=== PATIENT | female | born 1990 | race Two or more races ===

== ENCOUNTER 2016-10-16 00:35 | Emergency (ER) | payer SELFPAY ==
[~2016-10-16] VITALS: Ht 157.5 cm; Wt 68.0 kg
[2016-10-16 00:45] VITALS: BP 118/69
[2016-10-16 01:17] LABS: Basophils # (auto) 0 uL; Basophils % (auto) 0.3 % (0.0-2.0); Eosinophils # (auto) 0.2 uL; Eosinophils % (auto) 2.7 % (0.0-7.0); Hematocrit 38.8 % (36.0-46.0); Hemoglobin 12.9 g/dL (12.2-16.2); Lymphocytes # (auto) 2.3 uL; Lymphocytes % (auto) 27.7 % (10.0-50.0); Mean Corpuscular Hemoglobin 28.9 pg (28.0-32.0); Mean Corpuscular Hgb Conc. 33.2 g/dL (32.0-36.0); Mean Platelet Volume 8.5 fL (7.4-10.4); Monocytes # (auto) 0.4 uL; Neutrophils # (auto) 5.4 uL; Neutrophils % (auto) 64.3 % (37.0-80.0); Platelet Count (auto) 257 10^3/uL (140-450); White Blood Cell 8.5 10^3/uL (4.4-10.8)
[2016-10-16 01:37] LABS: Albumin 3.8 g/dL (3.4-5.0); BUN/Creatinine Ratio 20.3; Calcium 8.4 mg/dL (8.5-10.1); Potassium 3.9 mmol/L (3.5-5.1)
[2016-10-16 01:40] LABS: Bilirubin, Total 0.2 mg/dL (0.2-1.0); Total Protein 7.5 g/dL (6.4-8.2)
== END 2016-10-16 04:14 | disposition left against medical advice (07) ==
LOC: ER 00:39
DX: R25.2 Cramp and spasm (principal); R11.10 Vomiting, unspecified
CPT/HCPCS: 36415; 80053; 85025; 85049

== ENCOUNTER → 2017-09-03 | Outpatient (CLI) | payer OTHER | END | disposition home or self-care (01) | LOC: LAB 16:11 | PROVIDERS: ATTEND Preventive Medicine Preventive Medicine/Occupational Environmental Medicine | DX: Z02.1 Encounter for pre-employment examination (principal) | CPT/HCPCS: 36415; 86706; 86735; 86762; 86765; 86787 ==

== ENCOUNTER → 2022-01-25 | Outpatient (CLI) | payer BC ==
[2022-01-25 11:02] LABS: Basophils # (auto) 0 10 ^3/uL (0-0.2); Basophils % (auto) 0.4 % (0.0-2.0); Eosinophils # (auto) 0.1 10 ^3/uL (0-0.8); Eosinophils % (auto) 1.5 % (0.0-7.0); Hematocrit 39.2 % (36.0-46.0); Hemoglobin 13.3 g/dL (12.2-16.2); Lymphocytes # (auto) 1.9 10 ^3/uL (0.4-5.4); Lymphocytes % (auto) 36.6 % (10.0-50.0); Mean Corpuscular Hemoglobin 29.1 pg (28.0-32.0); Mean Corpuscular Hgb Conc. 33.8 g/dL (32.0-36.0); Monocytes # (auto) 0.4 10 ^3/uL (0-1.3); Monocytes % (auto) 7.7 % (0.0-12.0); Neutrophils # (auto) 2.8 10 ^3/uL (1.6-8.6); Neutrophils % (auto) 53.8 % (37.0-80.0); Nucleated Red Blood Cells % 0.1 %; Red Blood Cells 4.56 10^6/uL (4.0-5.20); Red Cell Distribution Width 12.6 % (11.8-14.3); White Blood Cell 5.1 10^3/uL (4.4-10.8)
[2022-01-25 11:04] LABS: Potassium 4.5 mmol/L (3.5-5.1)
[2022-01-25 11:12] LABS: Albumin 4.2 g/dL (3.4-5.0); Bilirubin, Total 0.5 mg/dL (0.2-1.0); Calcium 10.1 mg/dL (8.5-10.1); Total Protein 8.1 g/dL (6.4-8.2)
== END | disposition home or self-care (01) ==
LOC: LAB 10:10
PROVIDERS: ATTEND Internal Medicine
DX: E78.5 Hyperlipidemia, unspecified (principal)
CPT/HCPCS: 36415; 80053; 83036; 85025

== ENCOUNTER → 2022-05-22 | Outpatient (CLI) | payer BC ==
[2022-05-22 15:12] LABS: Basophils # (auto) 0 10 ^3/uL (0-0.2); Basophils % (auto) 0.7 % (0.0-2.0); Eosinophils # (auto) 0.2 10 ^3/uL (0-0.8); Eosinophils % (auto) 2.7 % (0.0-7.0); Hematocrit 40.5 % (36.0-46.0); Hemoglobin 13.3 g/dL (12.2-16.2); Lymphocytes # (auto) 1.8 10 ^3/uL (0.4-5.4); Lymphocytes % (auto) 28.8 % (10.0-50.0); Mean Corpuscular Hemoglobin 28.2 pg (28.0-32.0); Mean Corpuscular Hgb Conc. 32.8 g/dL (32.0-36.0); Monocytes # (auto) 0.3 10 ^3/uL (0-1.3); Monocytes % (auto) 4.8 % (0.0-12.0); Neutrophils # (auto) 3.9 10 ^3/uL (1.6-8.6); Nucleated Red Blood Cells % 0.1 %; Red Blood Cells 4.71 10^6/uL (4.0-5.20); Red Cell Distribution Width 12.8 % (11.8-14.3); White Blood Cell 6.2 10^3/uL (4.4-10.8)
[2022-05-22 15:38] LABS: Albumin 4.5 g/dL (3.4-5.0); Anion Gap 9 (5-15); Blood Alcohol < 3.0 mg/dL (0-5); Blood Urea Nitrogen 13 mg/dL (7-18); Calcium 9.6 mg/dL (8.5-10.1); Carbon Dioxide 25 mmol/L (21-32); Chloride 105 mmol/L (98-107); Glucose 90 mg/dL (74-106); Potassium 3.8 mmol/L (3.5-5.1); Sodium 139 mmol/L (136-145)
[2022-05-22 15:43] LABS: Alanine Aminotransferase 18 U/L (13-56); Alkaline Phosphatase 82 U/L (45-117); Aspartate Aminotransferase 13 U/L (15-37); BUN/Creatinine Ratio 21.3; Bilirubin, Total 0.3 mg/dL (0.2-1.0); Cholesterol 231 mg/dL (< 200); GFR African American 149 mL/min; GFR Non-African American 123 mL/min; HDL Cholesterol 44 mg/dL (40-59); LDL Cholesterol 174 mg/dL (< 100); Triglycerides 124 mg/dL (< 150)
== END | disposition home or self-care (01) ==
LOC: LAB 14:35
PROVIDERS: ATTEND Specialist
DX: Z20.822 Contact with and (suspected) exposure to COVID-19 (principal); Z02.1 Encounter for pre-employment examination; Z11.1 Encounter for screening for respiratory tuberculosis; E78.5 Hyperlipidemia, unspecified; E55.9 Vitamin D deficiency, unspecified; R53.83 Other fatigue
CPT/HCPCS: 36415; 80053; 80061; 80320; 82306; 84443; 85025; 86706; 86735; 86787

== ENCOUNTER → 2022-07-18 | Outpatient (CLI) | payer BC ==
[2022-07-18 08:52] LABS: Urine WBC None Seen /hpf (0 - 5)
[2022-07-18 11:38] LABS: Urine Amorphous Crystal FEW /hpf (None Seen); Urine Bacteria NONE SEEN /hpf (None Seen); Urine Blood Negative /uL (Negative); Urine Mucus FEW (None Seen)
== END | disposition home or self-care (01) ==
LOC: LAB 08:47
PROVIDERS: ATTEND Nurse Practitioner
DX: N39.0 Urinary tract infection, site not specified (principal)
CPT/HCPCS: 81001

== ENCOUNTER → 2024-01-06 | Outpatient (CLI) | payer BC ==
[~2024-01-06] MED LIST: ATOR10TA PO; DOCU-265 PO; HYDR-4902 PO; IBUP-1456 PO; SERT25TA84 PO
== END | disposition home or self-care (01) ==
LOC: LAB 09:21
PROVIDERS: ATTEND Obstetrics & Gynecology
DX: Z34.00 Encounter for supervision of normal first pregnancy, unspecified trimester (principal); Z3A.00 Weeks of gestation of pregnancy not specified
CPT/HCPCS: 36415; 84702; 86703

== ENCOUNTER 2024-03-10 00:07 | Emergency (ER) | payer BC ==
[~2024-03-10] VITALS: Ht 157.5 cm; Wt 76.6 kg
[2024-03-10 00:28] LABS: Basophils # (auto) 0 10 ^3/uL (0-0.2); Basophils % (auto) 0.3 % (0.0-2.0); Eosinophils # (auto) 0.1 10 ^3/uL (0-0.8); Eosinophils % (auto) 0.6 % (0.0-7.0); Hematocrit 34.3 % (36.0-46.0); Hemoglobin 11.8 g/dL (12.2-16.2); Lymphocytes # (auto) 1.6 10 ^3/uL (0.4-5.4); Lymphocytes % (auto) 14.1 % (10.0-50.0); Mean Corpuscular Hemoglobin 29.7 pg (28.0-32.0); Mean Corpuscular Hgb Conc. 34.4 g/dL (32.0-36.0); Mean Corpuscular Volume 86.3 fL (80.0-100.0); Monocytes # (auto) 0.4 10 ^3/uL (0-1.3); Monocytes % (auto) 3.4 % (0.0-12.0); Neutrophils # (auto) 9.1 10 ^3/uL (1.6-8.6); Neutrophils % (auto) 81.6 % (37.0-80.0); Red Blood Cells 3.98 10^6/uL (4.0-5.20); Red Cell Distribution Width 13.4 % (11.8-14.3); White Blood Cell 11.1 10^3/uL (4.4-10.8)
[2024-03-10 00:42] LABS: Alanine Aminotransferase 10 U/L (7-40); Albumin 4.3 g/dL (3.2-4.8); Alkaline Phosphatase 60 U/L (46-116); Anion Gap 7 (5-15); Aspartate Aminotransferase 9 U/L (13-40); Calcium 9.8 mg/dL (8.7-10.4); Carbon Dioxide 20 mmol/L (20-30); Chloride 109 mmol/L (98-107); Glucose 107 mg/dL (74-106); Potassium 3.7 mmol/L (3.5-5.1); Sodium 136 mmol/L (136-145)
[2024-03-10 00:43] LABS: Bilirubin, Total 0.3 mg/dL (0.2-1.0); Total Protein 7.1 g/dL (5.7-8.2)
[2024-03-10 00:49] LABS: BUN/Creatinine Ratio 11.9 (10.0-20.0); Blood Urea Nitrogen < 5 mg/dL (9-23)
[2024-03-10] MEDS: METOCLOPRAMIDE HCL 5MG/ml INJ 2ml VIAL IV ONE (01:27)
[2024-03-10 01:33] LABS: Urine Bacteria MANY /hpf (None Seen); Urine Blood Negative /uL (Negative); Urine Clarity Turbid (Clear); Urine Color Yellow (Yellow); Urine Mucus FEW (None Seen); Urine Protein, UAD TRACE (Negative); Urine Specific Gravity 1.029 (1.001-1.035); Urine Urobilinogen Normal (Negative); Urine WBC 3 /hpf (0 - 5)
[2024-03-10 04:54] VITALS: BP 112/67; PULSE 98; RESP 20; TEMP 98.4; O2SAT 98
[2024-03-10] MEDS: cefTRIAXone 1GM/50ML D5W 50 ML IV ONE (04:54)
[2024-03-10] MEDS ORDERED: METO-281 PO (05:43)
[2024-03-10] MEDS ORDERED: NITR-87 PO (05:43)
== END 2024-03-10 05:52 | disposition home or self-care (01) ==
LOC: ER 00:07
DX: O21.8 Other vomiting complicating pregnancy (principal); R10.2 Pelvic and perineal pain; O26.891 Other specified pregnancy related conditions, first trimester; R19.7 Diarrhea, unspecified; R82.71 Bacteriuria; Z3A.15 15 weeks gestation of pregnancy; Z79.899 Other long term (current) drug therapy; Z79.1 Long term (current) use of non-steroidal anti-inflammatories (NSAID)
CPT/HCPCS: 36415; 76805; 80053; 81001; 84702; 85025; 96365; 96375; 99285; J0696; J2765

== ENCOUNTER 2024-07-16 11:00 | Observation (INO) | payer BC ==
[~2024-07-16 11:00] MED LIST changes: +METO-281 PO; +NITR-87 PO
[2024-07-16] MEDS ORDERED: PREN-96 PO (11:39)
== END 2024-07-16 11:50 | disposition home or self-care (01) ==
LOC: LDRP 11:00 → UNDOADMOB 11:00 → LDRP 11:11 → UNDODISOB 11:50
PROVIDERS: ADMIT Obstetrics & Gynecology; ATTEND Obstetrics & Gynecology
DX: O24.419 Gestational diabetes mellitus in pregnancy, unspecified control (principal); O21.0 Mild hyperemesis gravidarum; Z3A.33 33 weeks gestation of pregnancy
CPT/HCPCS: 59025; 76818; 81002; 82948; 82962; 94760; 96360; 96361; G0378

== ENCOUNTER 2024-07-20 16:00 | Observation (INO) | payer BC ==
[~2024-07-20 16:00] MED LIST changes: +PREN-96 PO
== END 2024-07-20 17:52 | disposition home or self-care (01) ==
LOC: LDRP 16:00 → UNDOADMOB 16:00 → LDRP 16:15 → UNDODISOB 17:52
PROVIDERS: ADMIT Obstetrics & Gynecology; ATTEND Obstetrics & Gynecology
DX: O24.410 Gestational diabetes mellitus in pregnancy, diet controlled (principal); Z3A.33 33 weeks gestation of pregnancy; Z79.899 Other long term (current) drug therapy; Z98.890 Other specified postprocedural states
CPT/HCPCS: 59025; 76818; 81002; 82948; 94760; G0378

== ENCOUNTER 2024-07-23 09:27 | Observation (INO) | payer BC ==
[~2024-07-23] VITALS: Ht 162.6 cm; Wt 72.6 kg
[2024-07-23] MEDS ORDERED: LACTATED RINGER'S 1,000 ML IV ONE (11:00)
== END 2024-07-23 13:40 | disposition home or self-care (01) ==
LOC: LDRP 09:27 → UNDOADMOB 09:27 → LDRP 09:36 → UNDODISOB 13:40
PROVIDERS: ADMIT Obstetrics & Gynecology; ATTEND Obstetrics & Gynecology
DX: O24.419 Gestational diabetes mellitus in pregnancy, unspecified control (principal); Z3A.34 34 weeks gestation of pregnancy
CPT/HCPCS: 59025; 76818; 81002; 82948; 82962; 96360; 96361; G0378

== ENCOUNTER 2024-07-26 08:51 | Observation (INO) | payer BC, OTHER | END 2024-07-26 10:44 | disposition home or self-care (01) | LOC: LDRP 08:51 | PROVIDERS: ADMIT Obstetrics & Gynecology; ATTEND Obstetrics & Gynecology | DX: O24.419 Gestational diabetes mellitus in pregnancy, unspecified control (principal); Z3A.34 34 weeks gestation of pregnancy; Z79.899 Other long term (current) drug therapy | CPT/HCPCS: 59025; 76818; 81002; 82948; 82962; 94760; G0378 ==

== ENCOUNTER 2024-07-30 08:55 | Observation (INO) | payer BC, OTHER ==
--- NOTE | 2024-07-30 10:20 | DVH ---
BIOPHYSICAL PROFILE HISTORY: GDMA1 TECHNIQUE: Multiple transabdominal real-time grayscale sonographic images through the gravid uterus of the fetus with duplex Doppler color flow and M-mode spectral analysis FINDINGS: BIOPHYSICAL PROFILE: breathing score: 2 movement score: 2 tone score: 2 Quantitative DWIGHT score: 2 (DWIGHT: 18.9 Cm.) Total score: 8/8 The cervix not visualized Single live fetus in cephalic presentation. heart rate 165 beats per minute. Grade 3 anterior placenta without previa or abruption IMPRESSION: 1. Biophysical profile score: 8/8
--- NOTE | 2024-07-31 11:10 | DVHDS2 ---
Physician Discharge Progress N Final Diagnosis: gdm Operations or Procedures: Operations or Procedures nst,sono Condition on Discharge: Good Disposition: Home Discharge Instructions: Diet: Regular, Consistent carbohydrate Activity: No Restrictions, As Tolerated Medications: na Follow Up Care: Specialist: 2d Discharge Statement: "Patient was advised to return to the ER or call 911 if any headaches, dizziness, shortness of breath, chest pain, abdominal pain, bleeding, fevers, or worsening of medical condition. Patient was counseled about treatment plan, medications, possible side effects, patientverbalized understanding. All questions were answered to the best of my ability. This discharge took greater then 30 minutes in planning, reviewing document ation, counseling the patient, and discussing with other team members." RHODA NICHOLSON DO Jul 31, 2024 11:10
== END 2024-07-30 10:35 | disposition home or self-care (01) ==
LOC: LDRP 08:55
PROVIDERS: ADMIT Obstetrics & Gynecology; ATTEND Obstetrics & Gynecology
DX: O24.419 Gestational diabetes mellitus in pregnancy, unspecified control (principal); Z3A.35 35 weeks gestation of pregnancy
CPT/HCPCS: 59025; 76818; 81002; 82948; 82962; 94760; G0378

== ENCOUNTER 2024-08-07 06:43 | Observation (INO) | payer BC, OTHER ==
--- NOTE | 2024-08-07 10:14 | DVH ---
BIOPHYSICAL PROFILE HISTORY: GDMA1 Comparison Study: 07/30/24 TECHNIQUE: Multiple real-time grayscale sonographic images through the gravid uterus of the fetus wi th duplex Doppler color flow and M-mode spectral analysis FINDINGS: BIOPHYSICAL PROFILE: breathing score: 2 movement score: 2 tone score: 2 Quantitative DWIGHT score: 2 (DWIGHT: 19.9 Cm.) Total score: 8 The cervix is not visualied Single live fetus in cephalic presentation. heart rate 158 beats per minute. Anterior placenta without previa or abruption IMPRESSION: Biophysical profile score: 8
--- NOTE | 2024-08-07 17:52 | DVHDS2 ---
Physician Discharge Progress N Final Diagnosis: Gestational Diabetes Operations or Procedures: Operations or Procedures NST/BPP/DWIGHT Accucheck all WNL Condition on Discharge: Stable Disposition: Home Discharge Instructions: Diet: Consistent carbohydrate Activity: No Restrictions, As Tolerated Follow Up/Referral: as scheduled Medications: N/A Follow Up Care: Discharge Statement: "Patient was advised to return to the ER or call 911 if any headaches, dizziness, shortness of breath, chest pain, abdominal pain, bleeding, fevers, or worsening of medical condition. Patient was counseled about treatment plan, medications, possible side effects, patientverbalized understanding. All questions were answered to the best of my ability. This discharge took greater then 30 minutes in planning, reviewing documentation, counseling the patient, and discussing with other team members." DINA ROLDAN DO Aug 07, 2024 17:52
== END 2024-08-07 10:29 | disposition home or self-care (01) ==
LOC: LDRP 09:02 → UNDOADMOB 09:02 → LDRP 09:22 → UNDODISOB 10:29
PROVIDERS: ADMIT Obstetrics & Gynecology; ATTEND Obstetrics & Gynecology
DX: O24.419 Gestational diabetes mellitus in pregnancy, unspecified control (principal); Z3A.36 36 weeks gestation of pregnancy
CPT/HCPCS: 59025; 76818; 81002; 82948; 82962; 94760; G0378

== ENCOUNTER 2024-08-13 09:06 | Observation (INO) | payer BC, OTHER ==
[~2024-08-13] VITALS: Ht 157.5 cm; Wt 81.6 kg
--- NOTE | 2024-08-13 10:20 | DVH ---
BIOPHYSICAL PROFILE HISTORY: GDMA1 TECHNIQUE: Multiple transabdominal real-time grayscale sonographic images through the gravid uterus of the fetus with duplex Doppler color flow and M-mode spectral analysis FINDINGS: BIOPHYSICAL PROFILE: breathing score: 2 movement score: 2 tone score: 2 Quantitative DWIGHT score: 2 (DWIGHT: 19.1 Cm. MVP 6.2 cm ) Total score: 8/8 Single live fetus in cephalic presentation. heart rate 147 beats per minute. Anterior placenta without previa or abruption IMPRESSION: 1. Biophysical profile score: 8/8 HS:Y
--- NOTE | 2024-08-18 07:54 | DVHDS2 ---
Physician Discharge Progress N Final Diagnosis: gdm Operations or Procedures: Operations or Procedures nst,sono Condition on Discharge: Good Disposition: Home Discharge Instructions: Diet: Regular, Consistent carbohydrate Activity: Light activity Medications: na Follow Up Care: Specialist: 3d Discharge Statement: "Patient was advised to return to the ER or call 911 if any headaches, dizziness, shortness of breath, chest pain, abdominal pain, bleeding, fevers, or worsening of medical condition. Patient was counseled about treatment plan, medications, possible side effects, patientverbalized understanding. All questions were answered to the best of my ability. This discharge took greater then 30 minutes in planning, reviewing documentation, counseling the patient, and discussing with other team members." RHODA NICHOLSON DO Aug 18, 2024 07:54
== END 2024-08-13 10:37 | disposition home or self-care (01) ==
LOC: LDRP 09:06
PROVIDERS: ADMIT Obstetrics & Gynecology; ATTEND Obstetrics & Gynecology
DX: O24.419 Gestational diabetes mellitus in pregnancy, unspecified control (principal); Z3A.37 37 weeks gestation of pregnancy
CPT/HCPCS: 59025; 76818; 81002; 82948; 94760; G0378

== ENCOUNTER 2024-08-18 08:58 | Observation (INO) | payer BC, OTHER ==
--- NOTE | 2024-08-18 09:47 | DVH ---
Procedure: US BIOPHYSICAL PROFILE 08/18/2024 09:29 AM Indication: GDMA1 Comparison: US BIOPHYSICAL PROFILE on DOS: 08/13/24, US BIOPHYSICAL PROFILE on DOS: 08/07/24, US BIOP HYSICAL PROFILE on DOS: 07/30/24 Technique: Sonogram of gravid uterus utilizing grayscale and color techniques. FINDINGS: Single living intrauterine gestation. Presentation: Cephalic Placenta: Anterior heart rate: 154 bpm DWIGHT: 21.3 cm, DVP: 6.3 cm Maternal cervix: Not visualized Biophysical Profile: breathing score: 2 movement score: 2 tone: 2 Quantitative DWIGHT score: 2 Total score: 8/8 IMPRESSION: 1. Single living as above. 2. Biophysical profile score: 8/8.
--- NOTE | 2024-08-18 21:47 | DVHDS2 ---
Physician Discharge Progress N Final Diagnosis: testing for GDM, A1 Operations or Procedures: Operations or Procedures 34yo IUP@38+wks VSS UA wnl NST reactive (verified by 2 RNs) BPP wnl FKC/Labor precautions reviewed. Condition on Discharge: Stable Disposition: Home Discharge Instructions: Diet: Consistent carbohydrate Activity: No Restrictions, As Tolerated Medications: see med list Follow Up Care: Specialist: f/u in 1 wk Discharge Statement: "Patient was advised to return to the ER or call 911 if any headaches, dizziness, shortness of breath, chest pain, abdominal pain, bleeding, fevers, or worsening of medical condition. Patient was counseled about treatment plan, medications, possible side effects, patientverbalized understanding. All questions were answered to the best of my ability. This discharge took greater then 30 minutes in planning, reviewing do cumentation, counseling the patient, and discussing with other team members." ANDRÉS HILL CNM Aug 18, 2024 21:47
== END 2024-08-18 10:18 | disposition home or self-care (01) ==
LOC: LDRP 08:58
PROVIDERS: ADMIT Obstetrics & Gynecology; ATTEND Obstetrics & Gynecology
DX: O24.419 Gestational diabetes mellitus in pregnancy, unspecified control (principal); Z3A.38 38 weeks gestation of pregnancy
CPT/HCPCS: 59025; 76818; 81002; 82948; 82962; 94760; G0378

== ENCOUNTER 2024-08-25 08:57 | Observation (INO) | payer BC, OTHER ==
--- NOTE | 2024-08-25 09:42 | DVH ---
BIOPHYSICAL PROFILE HISTORY: GDMA1 TECHNIQUE: Multiple transabdominal real-time grayscale sonographic images through the gravid uterus of the fetus with duplex Doppler color flow and M-mode spectral analysis FINDINGS: BIOPHYSICAL PROFILE: breathing score: 2 movement score: 2 tone score: 2 Quantitative DWIGHT score: 2 (DWIGHT: 20.3 Cm.) Total score: 8 The cervix not well visualized. Single live fetus in cephalic presentation. heart rate 145 beats per minute. Grade 3 anterior placenta without previa or abruption IMPRESSION: Biophysical profile score: 8
--- NOTE | 2024-08-25 10:04 | DVHDS2 ---
Physician Discharge Progress N Final Diagnosis: testing for GDM, A1 Operations or Procedures: Operations or Procedures 34yo IUP@39.0wks, +FM and +BH, denies VB/LOF/UCs. VSS UA wnl NST reactive (verified by 2 RNs) BPP wnl FKC/Labor precautions reviewed. Condition on Discharge: Stable Disposition: Home Discharge Instructions: Diet: Consistent carbohydrate Activity: No Restrictions, As Tolerated Medications: see med list Follow Up Care: Specialist: f/u in 3 days Discharge Statement: "Patient was advised to return to the ER or call 911 if any headaches, dizziness, shortness of breath, chest pain, abdominal pain, bleeding, fevers, or worsening of medical condition. Patient was counseled about treatment plan, medications, possible side effects, patientverbalized understanding. All questions were answered to the best of my ability. This discharge took greater then 30 minutes in planning, reviewing documentation, counseling the patient, and discussing with other team members." ANDRÉS HILL CNM Aug 25, 2024 10:04
== END 2024-08-25 10:03 | disposition home or self-care (01) ==
LOC: UNDOADMOB 08:57 → LDRP 08:57 → UNDODISOB 10:03
PROVIDERS: ADMIT Nurse Practitioner Women's Health; ATTEND Obstetrics & Gynecology
DX: O24.419 Gestational diabetes mellitus in pregnancy, unspecified control (principal); O62.9 Abnormality of forces of labor, unspecified; Z79.899 Other long term (current) drug therapy; Z98.890 Other specified postprocedural states; Z3A.39 39 weeks gestation of pregnancy
CPT/HCPCS: 59025; 76818; 81002; 82948; 82962; 94760; G0378

== ENCOUNTER 2024-08-28 11:58 | Observation (INO) | payer BC, OTHER ==
--- NOTE | 2024-08-28 12:46 | DVH ---
CLINICAL HISTORY: Gestational diabetes. COMPARISON: US BIOPHYSICAL PROFILE on DOS: 08/25/24, US BIOPHYSICAL PROFILE on DOS: 08/18/24, US BIOPH YSICAL PROFILE on DOS: 08/13/24 TECHNIQUE: biophysical profile was performed. Transabdominal sonographic images of the fetus we re obtained. FINDINGS: The fetus is in cephalic position. heart rate measures 146 BPM. Amniotic fluid index measures 22.6 cm. The placenta is anterior in position. BPP profile is an overall score of 8/8, with 2/2 points for breathing, with at least one episode of breathing over a 30 second duration during a 30 minute observation, 2/2 points for m ovements, with 3 or more discrete body or limb movements, 2/2 points for tone, with one or more episodes of extremity extension with return to flexion, or opening and closing of hand, and 2/ 2 points for amniotic fluid, with at least 1 pocket of amniotic fluid that measures 2 cm in 2 perpend icular planes. IMPRESSION: BPP score of 8/8. Amniotic fluid index is 22.6.
--- NOTE | 2024-08-28 13:08 | DVHDS2 ---
Physician Discharge Progress N Final Diagnosis: gdm Operations or Procedures: Operations or Procedures nst,sono Condition on Discharge: Good Disposition: Home Discharge Instructions: Diet: Consistent carbohydrate Activity: No Restrictions, As Tolerated Medications: na Follow Up Care: Specialist: 2d Discharge Statement: "Patient was advised to return to the ER or call 911 if any headaches, dizziness, shortness of breath, chest pain, abdominal pain, bleeding, fevers, or worsening of medical condition. Patient was counseled about treatment plan, medications, possible side effects, patientverbalized understanding. All questions were answered to the best of my ability. This discharge took greater then 30 minutes in planning, reviewing documentation, counseling the patient, and discussing with other team members." RHODA NICHOLSON DO Aug 28, 2024 13:08
== END 2024-08-28 13:20 | disposition home or self-care (01) ==
LOC: LDRP 11:58
PROVIDERS: ADMIT Obstetrics & Gynecology; ATTEND Obstetrics & Gynecology
DX: O24.419 Gestational diabetes mellitus in pregnancy, unspecified control (principal); Z3A.39 39 weeks gestation of pregnancy; Z79.899 Other long term (current) drug therapy
CPT/HCPCS: 59025; 76818; 81002; 82962; G0378; 96366

== ENCOUNTER 2024-08-30 05:39 | Inpatient (IN) | payer BC, OTHER ==
[~2024-08-30] VITALS: Ht 157.5 cm; Wt 83.9 kg
[2024-08-30] MEDS ORDERED: PENICILLIN G POT 5MIL/D5 50ML 50 ML IV ONE (20:15)
[2024-08-30] MEDS ORDERED: NALBUPHINE HCL 10 MG/1ml INJECTION IV PRN (20:15)
[2024-08-30] MEDS ORDERED: NALBUPHINE HCL 10 MG/1ml INJECTION IM PRN (20:15)
[2024-08-30] MEDS ORDERED: ONDANSETRON HCL 4 MG/2 ML VIAL IV PRN (21:00)
[2024-08-30 21:17] LABS: Basophils # (auto) 0 10 ^3/uL (0-0.2); Basophils % (auto) 0.3 % (0.0-2.0); Eosinophils # (auto) 0 10 ^3/uL (0-0.8); Eosinophils % (auto) 0.3 % (0.0-7.0); Hematocrit 35.9 % (36.0-46.0); Hemoglobin 12.4 g/dL (12.2-16.2); Lymphocytes # (auto) 1.5 10 ^3/uL (0.4-5.4); Lymphocytes % (auto) 16.5 % (10.0-50.0); Mean Corpuscular Hemoglobin 30.3 pg (28.0-32.0); Mean Corpuscular Hgb Conc. 34.4 g/dL (32.0-36.0); Monocytes # (auto) 0.5 10 ^3/uL (0-1.3); Neutrophils # (auto) 7.1 10 ^3/uL (1.6-8.6); Neutrophils % (auto) 77.9 % (37.0-80.0); Platelet Count (auto) 190 10^3/uL (140-450); Red Blood Cells 4.08 10^6/uL (4.0-5.20); Red Cell Distribution Width 12.9 % (11.8-14.3); White Blood Cell 9.1 10^3/uL (4.4-10.8)
[2024-08-30] MEDS: LACTATED RINGER'S 1,000 ML IV SCH (21:20)
[2024-08-30 21:25] LABS: Alanine Aminotransferase 13 U/L (7-40); Albumin 4.4 g/dL (3.2-4.8); Anion Gap 11 (5-15); Aspartate Aminotransferase 18 U/L (13-40); BUN/Creatinine Ratio 15.8 (10.0-20.0); Blood Urea Nitrogen 9 mg/dL (9-23); Calcium 9.8 mg/dL (8.7-10.4); Carbon Dioxide 21 mmol/L (20-31); Chloride 105 mmol/L (98-107); Potassium 3.7 mmol/L (3.5-5.1); Sodium 137 mmol/L (136-145)
[2024-08-30 21:26] LABS: Bilirubin, Total 0.3 mg/dL (0.2-1.0); Total Protein 6.8 g/dL (5.7-8.2)
[2024-08-30 21:30] LABS: Alkaline Phosphatase 192 U/L (46-116); Glucose 112 mg/dL (74-106)
[2024-08-30 21:35] LABS: INR 0.95 (0.9-1.15); Partial Thromboplastin Time 24.4 SEC (24.5-34.5); Prothrombin Time 10.1 sec (9.3-11.8)
--- NOTE | 2024-08-30 22:33 | DVHHP2 ---
OB CC & HPI Date Date of Admission: Aug 30, 2024 Patient Identification: : 1 Para: 0 EDC: Aug 31, 2024 EGA: 39w 6d Chief Complaints: Reason for admission: induction of labor Indication for induction: medical complication (GDMA1) Admission Nurse Assessment Rev: Yes History of Present Complaints 34yo G1,[address] for scheduled IOL for GDMA1. She reports normal movements, very occasional contractions, no LOF, bleeding, MCKEON, vision changes or epigastric pain Past Medical History Cardiac: No pertinent Hx Pulmonary: No pertinent Hx Central Nervous System: No pertinent Hx GI: No pertinent Hx Hemotology/Oncology: No pertinent Hx Psychiatric: Anxiety Rheumotologic: No pertinent Hx Infectious Disease: No peritnent Hx ENT: No pertinent Hx Renal/: No pertinent Hx Dermatology: No pertinent Hx Others Endometriosis, Ovarian cyst Past Surgical History: Other (Right partial Oophrectomy in Jun 2023) OB History OB History Care: Good Care Ultrasounds: Normal mid trimester US Obstetrical Complications: Gestational Diabetes Medical Complications: Psychiatric (Anxiety on Zol) Allergies: Coded Allergies: NO KNOWN ALLERGIES (Unverified , 10/16/16) Home Meds Active Scripts Nitrofurantoin Monohydrate Mac (Macrobid) 100 Mg Cap, 100 MG PO BID for 7 Days, #14 CAP Prov:BRANDY JOHNSTON MD 03/10/24 Metoclopramide Hcl (Reglan) 10 Mg Tab, 10 MG PO QID PRN, #20 TAB Prov:BRANDY JOHNSTON MD 03/10/24 Ibuprofen (Ibuprofen) 800 Mg Tab, 800 MG PO TID PRN for 10 Days, #30 TAB Prov:DINA ROLDAN DO 06/29/23 Hydrocodone-Acetaminophen (Hydrocodone Bitartrate/AC 5-325 mg) 1 Tab Tab, 1 TAB PO Q6HPRN PRN for 5 Days, #20 TAB Prov:DINA ROLDAN DO 06/29/23 Docusate Sodium (Docusate Sodium) 100 Mg Cap, 100 MG PO BIDPRN PRN for 5 Days, CAP Prov:DINA ROLDAN DO 06/29/23 Reported Medications Vit W/ Ferrous Fumara ( One Daily) Daily Tab, 1 TAB PO DAILY, #90 TAB 3 Refills 07/16/24 Atorvastatin Calcium (Lipitor) 10 Mg Tab, 1 TAB PO QPM, #90 TAB 3 Refills 06/28/23 Sertraline Hcl (Zoloft) 25 Mg Tab, 75 MG PO DAILY, TAB 06/28/23 Current Medications Current Medications Medications (Trade) Dose Ordered Sig/Allison Route PRN Reason Start Time Stop Time Status Last Admin Lactated Ringer's 1,000 ml @ 125 mls/hr Q8H IV 08/30/24 20:15 08/30/24 21:20 Nalbuphine HCl (Nubain) 10 mg Q4HP PRN IM MODERATE PAIN (4-6 PAIN SCALE) 08/30/24 20:15 Nalbuphine HCl (Nubain) 10 mg Q4HP PRN IV MODERATE PAIN (4-6 PAIN SCALE) 08/30/24 20:15 Penicillin G Potassium [id number] units/Dextrose 50 ml @ 100 mls/hr Q4H IV 08/31/24 00:15 Diagnostic Test (Pha) (Accu-Chek Comfort Curve T) 1 strip Q4HR 08/30/24 23:00 Rigoberto Mathew (Tucks) 1 pad PRN PRN TOP PERINEAL AREA DISCOMFORT 08/30/24 20:15 Sodium Lauryl Sulfate (Phisoderm) 240 ml PRN PRN TOP PERINEAL AREA DISCOMFORT 08/30/24 20:15 Benzocaine (Dermoplast) 1 applic PRN PRN TOP PERINEAL AREA DISCOMFORT 08/30/24 20:15 Lidocaine HCl (Xylocaine) 20 ml ONCE PRN IJ PERINEAL AREA DISCOMFORT 08/30/24 20:15 Ondansetron HCl (Zofran) 4 mg Q4HPRN PRN IV NAUSEA / VOMITING 08/30/24 21:00 Misoprostol (Cytotec) 50 mcg Q4HPRN PRN PO CERVICAL RIPENING 08/30/24 22:00 UNV Family & Social History Family/Social History Past Family/Social History: Family history non pertinent Blood Type: B+ Rubella: immune RPR/VDRL: Negative GBS Status: Negative HBsAG: Negative Review of Systems Constitutional: No symptom reported Ears, Nose, & Throat: No symptom reported Eyes: No symptom reported Pulmonary/Respiratory: No symptom reported Cardiovascular: No symptom reported Gastrointestinal: No symptom reported Genitourinary: No symptom reported Musculoskeletal: No symptom reported Skin: No symptom reported Psychiatric: No symptom reported Endocrine: No symptom reported Hemotologic/Lymphatic: No symptom reported OB Admission Exam Physical Exam HEENT: Nasal Mucosa Normal, Eyes non-injected Heart: Rhythm Normal Lungs: Clear Abdomen: Gravid (non-tender) Extremities: Normal Reflexes: Normal Cervical Dilatation: None Effacement: 0% Station: Ballotable (Exam ny RN) Membranes: Intact Heart Rate: 140's Accelerations: Accelerations Present Decelerations: No Decelerations Intermediate Variability: Average (6-25) Contractions on Admission: 6-10 Minutes Apart Intensity: Mild (Not felt by patient) OB Plan Plan Admitting Diagnosis: IUP at 39weeks 6d GDMA1 Induction of labor Category 1 FHR Tracing Plan: Induction Induction Methd: Prostin protocol Other Plan: Plan of care discussed with Patient and partner / family IOL process, cervical ripening with medication, cervical ripening balloon, oxytocin etc including the risks, benefits and options discussed with the patient & partner. Process, Risks, benefits, of possible intervention /procedures, Internal monitoring of UCs & FHT, AROM, amnioinfusion etc if indicated Pain management options discussed; wants labor epidural All questions answered. Informed Consents obtained including consent for possible blood transfusion Admit to Place for scheduled IOL Routine L&D admission orders Misoprostol per protocol EFM per policy & protocol Intrauterine resuscitation PRN Labor analgesia PRN Encourage frequent position change and ambulation to facilitate labor & descent Supportive Care Anticipate Will consult /co-manage with Dr Avila.as needed ESTELLA STRICKLAND CNM Aug 30, 2024 22:33
[2024-08-30 22:36] LABS: Urine Amorphous Crystal FEW /hpf (None Seen); Urine Bacteria FEW /hpf (None Seen); Urine Blood Negative /uL (Negative); Urine Clarity Clear (Clear); Urine Color Yellow (Yellow); Urine Mucus FEW (None Seen); Urine Protein, UAD 1+ (Negative); Urine Specific Gravity 1.029 (1.001-1.035); Urine Urobilinogen Normal (Negative); Urine WBC 2 /hpf (0 - 5); Urine pH 6.5 (5.0-9.0)
[2024-08-30 22:40] LABS: Amphetamine Screen, Urine Neg (NEGATIVE); Barbiturate Scree,Urine Neg (NEGATIVE); Benzodiazephine Screen, Urine Neg (NEGATIVE); Cannabinoid Screen, Urine Neg (NEGATIVE); Cocaine Screen, Urine Neg (NEGATIVE); Opiate Scree,Urine Neg (NEGATIVE); Phencyclidine Screen, Urine Neg (NEGATIVE)
[2024-08-30] MEDS ORDERED: ACCU-CHEK COMFORT CURVE STRIP VI SCH (23:00)
[2024-08-30] MEDS: DERMOPLAST 60ML BOTTLE TOP PRN (23:38)
[2024-08-30] MEDS: PHISODERM TOP SOLN 240ML BTL TOP PRN (23:38)
[2024-08-30] MEDS: miSOPROStol 50 MCG per PRE-CUT 1/2 TAB PO PRN (23:38)
[2024-08-30] MEDS: WITCH HAZEL-GLYCERIN PAD TOP PRN (23:38)
[2024-08-31] MEDS ORDERED: PENICILLIN G POTASSIUM 2,500,000 UNITS in D5W 5% 50 ML IV SCH (00:15)
--- NOTE | 2024-08-31 08:21 | DVHPN2 ---
CNM Labor Progress Note Date and Time Seen Date Seen: Aug 31, 2024 Time Seen: 06:00 Subjective Patient reports: No new complaints Monitoring Method Monitoring Method: External Heart Rate Heart Rate Baseline: 135 Heart Rate Variability: Moderate Presence of FHR Accelerations: Yes Presence of FHR Decelerations: No Changes in Trends of Patterns: No Are all 5 Components of the FH: Yes Contractions Contractions Frequency: Occasional Duration of Contraction: 60 Contractions Intensity: Mild Contractions Resting Tone: Relaxed Membranes Membranes: Intact Vaginal Exam Vag Exam Deferred: Yes Medications Medications - Pitocin: No Medication - Epidural: No Medication - Other Misoprostol Lab Results Lab Results Current Medications Medications (Trade) Dose Ordered Sig/Allison Start Time Stop Time Status Last Admin Dose Admin Lactated Ringer's 1,000 ml @ 125 mls/hr Q8H 08/30/24 20:15 08/30/24 21:20 125 MLS/HR Nalbuphine HCl (Nubain) 10 mg Q4HP PRN 08/30/24 20:15 Nalbuphine HCl (Nubain) 10 mg Q4HP PRN 08/30/24 20:15 Penicillin G Potassium 50 ml @ 100 mls/hr ONCE ONCE 08/30/24 20:15 08/30/24 23:50 DC Penicillin G Potassium [id number] units/Dextrose 50 ml @ 100 mls/hr Q4H 08/31/24 00:15 08/30/24 23:50 DC Diagnostic Test (Pha) (Accu-Chek Comfort Curve T) 1 strip Q4HR 08/30/24 23:00 Rigoberto Mathew (Tucks) 1 pad PRN PRN 08/30/24 20:15 08/30/24 23:38 1 PAD Sodium Lauryl Sulfate (Phisoderm) 240 ml PRN PRN 08/30/24 20:15 08/30/24 23:38 240 ML Benzocaine (Dermoplast) 1 applic PRN PRN 08/30/24 20:15 08/30/24 23:38 1 APPLIC Lidocaine HCl (Xylocaine) 20 ml ONCE PRN 08/30/24 20:15 Ondansetron HCl (Zofran) 4 mg Q4HPRN PRN 08/30/24 21:00 Misoprostol (Cytotec) 50 mcg Q4HPRN PRN 08/30/24 22:00 12/9/24 04:02 50 MCG Laboratory Tests Test 08/31/24 03:22 08/30/24 22:15 08/30/24 20:34 Range/Units POC Glucose 98 70-106 mg/dl Urine Color Yellow Yellow Urine Clarity Clear Clear Urine pH 6.5 5.0-9.0 Urine Specific [place] 1.029 1.001-1.035 Urine Protein 1+ H Negative Urine Ketones Negative Negative Urine Blood Negative Negative /uL Urine Nitrite Negative Negative Urine Bilirubin Negative Negative Urine Urobilinogen Normal Negative mg/dL Urine Leukocyte Esterase Negative Negative /uL Urine RBC 1 0 - 4 /hpf Urine WBC 2 0 - 5 /hpf Urine Squamous Epithelial Cells Few <5 /hpf Urine Amorphous Crystals Few None Seen /hpf Urine Bacteria Few H None Seen /hpf Urine Mucus Few None Seen Urine Glucose Normal Normal mg/dL Urine Opiates Screen Neg NEGATIVE Urine Fentanyl Screen Neg NEGATIVE Urine Barbiturates Screen Neg NEGATIVE Urine Phencyclidine Screen Neg NEGATIVE Urine Amphetamines Screen Neg NEGATIVE Urine Benzodiazepines Screen Neg NEGATIVE Urine Cocaine Screen Neg NEGATIVE Urine Cannabinoids Screen Neg NEGATIVE White Blood Count 9.1 4.4-10.8 10^3/uL Red Blood Count 4.08 4.0-5.20 10^6/uL Hemoglobin 12.4 12.2-16.2 g/dL Hematocrit 35.9 L 36.0-46.0 % Mean Corpuscular Volume 88.0 80.0-100.0 fL Mean Corpuscular Hemoglobin 30.3 28.0-32.0 pg Mean Corpuscular Hemoglobin Concent 34.4 32.0-36.0 g/dL Red Cell Distribution Width 12.9 11.8-14.3 % Platelet Count 190 140-450 10^3/uL Mean Platelet Volume 8.8 6.9-10.8 fL Neutrophils (%) (Auto) 77.9 37.0-80.0 % Lymphocytes (%) (Auto) 16.5 10.0-50.0 % Monocytes (%) (Auto) 5.0 0.0-12.0 % Eosinophils (%) (Auto) 0.3 0.0-7.0 % Basophils (%) (Auto) 0.3 0.0-2.0 % Neutrophils # (Auto) 7.1 1.6-8.6 10 ^3/uL Lymphocytes # (Auto) 1.5 0.4-5.4 10 ^3/uL Monocytes # (Auto) 0.5 0-1.3 10 ^3/uL Eosinophils # (Auto) 0 0-0.8 10 ^3/uL Basophils # (Auto) 0 0-0.2 10 ^3/uL Nucleated Red Blood Cells 0.0 % Prothrombin Time 10.1 9.3-11.8 sec Prothrombin Time INR 0.95 0.9-1.15 Activated Partial Thromboplast Time 24.4 L 24.5-34.5 SEC Sodium Level 137 136-145 mmol/L Potassium Level 3.7 3.5-5.1 mmol/L Chloride Level 105 98-107 mmol/L Carbon Dioxide Level 21 20-31 mmol/L Anion Gap 11 5-15 Blood Urea Nitrogen 9 9-23 mg/dL Creatinine 0.57 0.550-1.02 mg/dL Glomerular Filtration Rate Calc 124 >90 mL/min BUN/Creatinine Ratio 15.8 10.0-20.0 Serum Glucose 112 H 74-106 mg/dL Calcium Level 9.8 8.7-10.4 mg/dL Total Bilirubin 0.3 0.2-1.0 mg/dL Aspartate Amino Transferase (AST) 18 13-40 U/L Alanine Aminotransferase (ALT) 13 7-40 U/L Alkaline Phosphatase 192 H 46-116 U/L Total Protein 6.8 5.7-8.2 g/dL Albumin 4.4 3.2-4.8 g/dL Rapid Plasma Reagin Pending Treponema pallidum Ab (TP-PA) Pending Consulting with Consulting with: None Assessment Assessment IUP at 39w 6d GDNA1 Anxiety IOL Category 1 FHR Tracing Plan Plan Continue current management Intrauterine resuscitation PRN Encourage ambulation to facilitate labor Labor analgesia PRN Supportive care Plan discussed with: Patient, Spouse ESTELLA STRICKLAND Bibi BERNAL Aug 31, 2024 08:21
[2024-08-31] MEDS: DINOPROSTONE 10MG VAG SUPP PV ONE (15:37)
--- NOTE | 2024-08-31 16:05 | DVH ---
OB ULTRASOUND <14 WEEKS: HISTORY: induction TECHNIQUE: Multiple real-time grayscale sonographic images of the pelvis with duplex Doppler color f low, spectral and M-mode analysis. TRANSDUCERS: Transabdominal FINDINGS: heart rate detected at 142 beats per minute. Presentation cephalic Placenta anterior no placenta previa or placental abruption DWIGHT: 19.67 cm IMPRESSION: 1. Presentation cephalic 2. Placenta anterior no placenta previa or placental abruption 3. Positive heart rate ( 142 beats per minute) 4. Current DWIGHT: 19.67 cm
--- NOTE | 2024-08-31 16:19 | DVHPN2 ---
OB Labor Progress Note Date and Time Seen Date Seen: Aug 31, 2024 Time Seen: 16:13 Subjective Patient reports: No new complaints Subjective Comment Cytotec x 3, mild contractions Objective Vital Signs Afeb VS stable Monitoring Method Monitoring Method: External Heart Rate Heart Rate Baseline: 130 Heart Rate Variability: Moderate Presence of FHR Accelerations: Yes Contractions Contractions Frequency: Occasional Contractions Intensity: Mild Membranes Membranes: Intact Vaginal Exam Vag Exam Deferred: No Vaginal Exam Dilation: 0 Vaginal Exam Effacement: 0 Vaginal Exam Station: -4 Vaginal Exam Presentation: VTX Vaginal Exam Show: None Medications Medications - Pitocin: No Medication - Epidural: No Lab Results Lab Results Current Medications Medications (Trade) Dose Ordered Sig/Allison Start Time Stop Time Status Last Admin Dose Admin Lactated Ringer's 1,000 ml @ 125 mls/hr Q8H 08/30/24 20:15 08/30/24 21:20 125 MLS/HR Nalbuphine HCl (Nubain) 10 mg Q4HP PRN 08/30/24 20:15 Nalbuphine HCl (Nubain) 10 mg Q4HP PRN 08/30/24 20:15 Penicillin G Potassium 50 ml @ 100 mls/hr ONCE ONCE 08/30/24 20:15 08/30/24 23:50 DC Penicillin G Potassium [id number] units/Dextrose 50 ml @ 100 mls/hr Q4H 08/31/24 00:15 08/30/24 23:50 DC Diagnostic Test (Pha) (Accu-Chek Comfort Curve T) 1 strip Q4HR 08/30/24 23:00 Rigoberto Mathew (Tucks) 1 pad PRN PRN 08/30/24 20:15 08/30/24 23:38 1 PAD Sodium Lauryl Sulfate (Phisoderm) 240 ml PRN PRN 08/30/24 20:15 08/30/24 23:38 240 ML Benzocaine (Dermoplast) 1 applic PRN PRN 08/30/24 20:15 08/30/24 23:38 1 APPLIC Lidocaine HCl (Xylocaine) 20 ml ONCE PRN 08/30/24 20:15 Ondansetron HCl (Zofran) 4 mg Q4HPRN PRN 08/30/24 21:00 Misoprostol (Cytotec) 50 mcg Q4HPRN PRN 08/30/24 22:00 08/31/24 08:35 50 MCG Dinoprostone (Cervidil Suppository) 1 supp ONCE ONCE 08/31/24 14:30 08/31/24 14:31 DC 08/31/24 15:37 1 SUPP Laboratory Tests Test 08/31/24 12:33 08/30/24 22:15 08/30/24 20:34 Range/Units POC Glucose 103 70-106 mg/dl Urine Color Yellow Yellow Urine Clarity Clear Clear Urine pH 6.5 5.0-9.0 Urine Specific [place] 1.029 1.001-1.035 Urine Protein 1+ H Negative Urine Ketones Negative Negative Urine Blood Negative Negative /uL Urine Nitrite Negative Negative Urine Bilirubin Negative Negative Urine Urobilinogen Normal Negative mg/dL Urine Leukocyte Esterase Negative Negative /uL Urine RBC 1 0 - 4 /hpf Urine WBC 2 0 - 5 /hpf Urine Squamous Epithelial Cells Few <5 /hpf Urine Amorphous Crystals Few None Seen /hpf Urine Bacteria Few H None Seen /hpf Urine Mucus Few None Seen Urine Glucose Normal Normal mg/dL Urine Opiates Screen Neg NEGATIVE Urine Fentanyl Screen Neg NEGATIVE Urine Barbiturates Screen Neg NEGATIVE Urine Phencyclidine Screen Neg NEGATIVE Urine Amphetamines Screen Neg NEGATIVE Urine Benzodiazepines Screen Neg NEGATIVE Urine Cocaine Screen Neg NEGATIVE Urine Cannabinoids Screen Neg NEGATIVE White Blood Count 9.1 4.4-10.8 10^3/uL Red Blood Count 4.08 4.0-5.20 10^6/uL Hemoglobin 12.4 12.2-16.2 g/dL Hematocrit 35.9 L 36.0-46.0 % Mean Corpuscular Volume 88.0 80.0-100.0 fL Mean Corpuscular Hemoglobin 30.3 28.0-32.0 pg Mean Corpuscular Hemoglobin Concent 34.4 32.0-36.0 g/dL Red Cell Distribution Width 12.9 11.8-14.3 % Platelet Count 190 140-450 10^3/uL Mean Platelet Volume 8.8 6.9-10.8 fL Neutrophils (%) (Auto) 77.9 37.0-80.0 % Lymphocytes (%) (Auto) 16.5 10.0-50.0 % Monocytes (%) (Auto) 5.0 0.0-12.0 % Eosinophils (%) (Auto) 0.3 0.0-7.0 % Basophils (%) (Auto) 0.3 0.0-2.0 % Neutrophils # (Auto) 7.1 1.6-8.6 10 ^3/uL Lymphocytes # (Auto) 1.5 0.4-5.4 10 ^3/uL Monocytes # (Auto) 0.5 0-1.3 10 ^3/uL Eosinophils # (Auto) 0 0-0.8 10 ^3/uL Basophils # (Auto) 0 0-0.2 10 ^3/uL Nucleated Red Blood Cells 0.0 % Prothrombin Time 10.1 9.3-11.8 sec Prothrombin Time INR 0.95 0.9-1.15 Activated Partial Thromboplast Time 24.4 L 24.5-34.5 SEC Sodium Level 137 136-145 mmol/L Potassium Level 3.7 3.5-5.1 mmol/L Chloride Level 105 98-107 mmol/L Carbon Dioxide Level 21 20-31 mmol/L Anion Gap 11 5-15 Blood Urea Nitrogen 9 9-23 mg/dL Creatinine 0.57 0.550-1.02 mg/dL Glomerular Filtration Rate Calc 124 >90 mL/min BUN/Creatinine Ratio 15.8 10.0-20.0 Serum Glucose 112 H 74-106 mg/dL Calcium Level 9.8 8.7-10.4 mg/dL Total Bilirubin 0.3 0.2-1.0 mg/dL Aspartate Amino Transferase (AST) 18 13-40 U/L Alanine Aminotransferase (ALT) 13 7-40 U/L Alkaline Phosphatase 192 H 46-116 U/L Total Protein 6.8 5.7-8.2 g/dL Albumin 4.4 3.2-4.8 g/dL Rapid Plasma Reagin Pending Treponema pallidum Ab (TP-PA) Pending Assessment Assessment Term IUP GDMA1 Induction of labor s/p Cervidil placement in posterior vaginal fornix Category 1 FHR pattern Plan Plan Continue current care Plan discussed with: Patient DINA ROLDAN DO Aug 31, 2024 16:19
[2024-08-31] MEDS: ACETAMINOPHEN 325 MG TAB PO ONE (17:54)
--- NOTE | 2024-08-31 18:27 | DVHPN2 ---
OB Labor Progress Note Date and Time Seen Date Seen: Aug 31, 2024 Time Seen: 18:40 Subjective Subjective Comment Patient has had NR NST, spont. variable and late decelerations despite position changes and O2 mask placed Patient had a prolonged 2.5 min decel down to 60 bpm, spontaneous recovery, moderate variability Cervix is unchanged closed/post thick. Monitoring Method Monitoring Method: External Heart Rate Heart Rate Baseline: 145 Heart Rate Variability: Moderate Presence of FHR Accelerations: No Presence of FHR Decelerations: Yes Heart Rate Type of Decel: Variable Decelerations, Late Decelerations Contractions Contractions Intensity: Mild Membranes Membranes: Intact Vaginal Exam Vag Exam Deferred: No Vaginal Exam Dilation: 0 Vaginal Exam Effacement: 0 Vaginal Exam Station: -4 Vaginal Exam Presentation: VTX Vaginal Exam Show: None Medications Medications - Pitocin: No Medication - Epidural: No Lab Results Lab Results Current Medications Medications (Trade) Dose Ordered Sig/Allison Start Time Stop Time Status Last Admin Dose Admin Lactated Ringer's 1,000 ml @ 125 mls/hr Q8H 08/30/24 20:15 08/30/24 21:20 125 MLS/HR Nalbuphine HCl (Nubain) 10 mg Q4HP PRN 08/30/24 20:15 08/31/24 17:47 DC Nalbuphine HCl (Nubain) 10 mg Q4HP PRN 08/30/24 20:15 Penicillin G Potassium 50 ml @ 100 mls/hr ONCE ONCE 08/30/24 20:15 08/30/24 23:50 DC Penicillin G Potassium [id number] units/Dextrose 50 ml @ 100 mls/hr Q4H 08/31/24 00:15 08/30/24 23:50 DC Diagnostic Test (Pha) (Accu-Chek Comfort Curve T) 1 strip Q4HR 08/30/24 23:00 Rigoberto Mathew (Tucks) 1 pad PRN PRN 08/30/24 20:15 08/30/24 23:38 1 PAD Sodium Lauryl Sulfate (Phisoderm) 240 ml PRN PRN 08/30/24 20:15 08/30/24 23:38 240 ML Benzocaine (Dermoplast) 1 applic PRN PRN 08/30/24 20:15 08/30/24 23:38 1 APPLIC Lidocaine HCl (Xylocaine) 20 ml ONCE PRN 08/30/24 20:15 Ondansetron HCl (Zofran) 4 mg Q4HPRN PRN 08/30/24 21:00 Misoprostol (Cytotec) 50 mcg Q4HPRN PRN 08/30/24 22:00 08/31/24 08:35 50 MCG Dinoprostone (Cervidil Suppository) 1 supp ONCE ONCE 08/31/24 14:30 08/31/24 14:31 DC 08/31/24 15:37 1 SUPP Acetaminophen (Tylenol Tablet) 650 mg ONCE ONCE 08/31/24 17:45 08/31/24 17:47 DC 08/31/24 17:54 650 MG Laboratory Tests Test 08/31/24 12:33 08/30/24 22:15 08/30/24 20:34 Range/Units POC Glucose 103 70-106 mg/dl Urine Color Yellow Yellow Urine Clarity Clear Clear Urine pH 6.5 5.0-9.0 Urine Specific [place] 1.029 1.001-1.035 Urine Protein 1+ H Negative Urine Ketones Negative Negative Urine Blood Negative Negative /uL Urine Nitrite Negative Negative Urine Bilirubin Negative Negative Urine Urobilinogen Normal Negative mg/dL Urine Leukocyte Esterase Negative Negative /uL Urine RBC 1 0 - 4 /hpf Urine WBC 2 0 - 5 /hpf Urine Squamous Epithelial Cells Few <5 /hpf Urine Amorphous Crystals Few None Seen /hpf Urine Bacteria Few H None Seen /hpf Urine Mucus Few None Seen Urine Glucose Normal Normal mg/dL Urine Opiates Screen Neg NEGATIVE Urine Fentanyl Screen Neg NEGATIVE Urine Barbiturates Screen Neg NEGATIVE Urine Phencyclidine Screen Neg NEGATIVE Urine Amphetamines Screen Neg NEGATIVE Urine Benzodiazepines Screen Neg NEGATIVE Urine Cocaine Screen Neg NEGATIVE Urine Cannabinoids Screen Neg NEGATIVE White Blood Count 9.1 4.4-10.8 10^3/uL Red Blood Count 4.08 4.0-5.20 10^6/uL Hemoglobin 12.4 12.2-16.2 g/dL Hematocrit 35.9 L 36.0-46.0 % Mean Corpuscular Volume 88.0 80.0-100.0 fL Mean Corpuscular Hemoglobin 30.3 28.0-32.0 pg Mean Corpuscular Hemoglobin Concent 34.4 32.0-36.0 g/dL Red Cell Distribution Width 12.9 11.8-14.3 % Platelet Count 190 140-450 10^3/uL Mean Platelet Volume 8.8 6.9-10.8 fL Neutrophils (%) (Auto) 77.9 37.0-80.0 % Lymphocytes (%) (Auto) 16.5 10.0-50.0 % Monocytes (%) (Auto) 5.0 0.0-12.0 % Eosinophils (%) (Auto) 0.3 0.0-7.0 % Basophils (%) (Auto) 0.3 0.0-2.0 % Neutrophils # (Auto) 7.1 1.6-8.6 10 ^3/uL Lymphocytes # (Auto) 1.5 0.4-5.4 10 ^3/uL Monocytes # (Auto) 0.5 0-1.3 10 ^3/uL Eosinophils # (Auto) 0 0-0.8 10 ^3/uL Basophils # (Auto) 0 0-0.2 10 ^3/uL Nucleated Red Blood Cells 0.0 % Prothrombin Time 10.1 9.3-11.8 sec Prothrombin Time INR 0.95 0.9-1.15 Activated Partial Thromboplast Time 24.4 L 24.5-34.5 SEC Sodium Level 137 136-145 mmol/L Potassium Level 3.7 3.5-5.1 mmol/L Chloride Level 105 98-107 mmol/L Carbon Dioxide Level 21 20-31 mmol/L Anion Gap 11 5-15 Blood Urea Nitrogen 9 9-23 mg/dL Creatinine 0.57 0.550-1.02 mg/dL Glomerular Filtration Rate Calc 124 >90 mL/min BUN/Creatinine Ratio 15.8 10.0-20.0 Serum Glucose 112 H 74-106 mg/dL Calcium Level 9.8 8.7-10.4 mg/dL Total Bilirubin 0.3 0.2-1.0 mg/dL Aspartate Amino Transferase (AST) 18 13-40 U/L Alanine Aminotransferase (ALT) 13 7-40 U/L Alkaline Phosphatase 192 H 46-116 U/L Total Protein 6.8 5.7-8.2 g/dL Albumin 4.4 3.2-4.8 g/dL Rapid Plasma Reagin Pending Treponema pallidum Ab (TP-PA) Pending Assessment Assessment IUP 39+ week GDMA1, induction of labor Category II FHR remote from delivery Plan Plan 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 OR crew and Anesthesia notified now for urgent C/S delivery. Plan discussed with: Patient, Other (RN) DINA ROLDAN DO Aug 31, 2024 18:27
[2024-08-31] MEDS ORDERED: fentaNYL CITRATE 100 MCG/2 ML VL ONE (19:10)
[2024-08-31] MEDS ORDERED: MORPHINE SULF PF 5 MG/10 ML VIAL ONE (19:10)
[2024-08-31] MEDS ORDERED: oxyTOCIN 10 UNIT/ML 10ML VIAL ONE (19:12)
[2024-08-31] MEDS ORDERED: GLYCOPYRROLATE 0.2 MG/ML 1ML VIAL ONE (19:12)
[2024-08-31] MEDS ORDERED: KETOROLAC TROMETH 30 MG/ML 1ML VIAL ONE (19:12)
[2024-08-31] MEDS ORDERED: PHENYLEPHRINE HCL 10 MG/ML VL ONE (19:12)
[2024-08-31] MEDS ORDERED: ONDANSETRON HCL 4 MG/2 ML VIAL ONE (19:12)
[2024-08-31] MEDS ORDERED: ceFAZolin 1GM/50ML 50 ML IV SCH (19:30)
[2024-08-31] MEDS ORDERED: ONDANSETRON HCL 4 MG/2 ML VIAL IV PRN ×2 (19:30→20:45)
[2024-08-31] MEDS ORDERED: KETOROLAC TROMETH 30 MG/ML 1ML VIAL IV PRN (19:30)
[2024-08-31] MEDS: METHYLERGONOVINE MALEATE 0.2 MG/ML AMP IM ONE (19:56)
[2024-08-31] MEDS ORDERED: MEPERIDINE HCL (25 MG/ML) 1ML VIAL ONE (20:09)
[2024-08-31 20:40] VITALS: PULSE 84; RESP 18; O2SAT 98
[2024-08-31] MEDS ORDERED: DexAMETHasone SOD PHOS 10MG/1ML VIAL INJ IV PRN (20:45)
[2024-08-31] MEDS ORDERED: diphenhdrAMINE HCL 50 MG/1 ML VL IV PRN (20:45)
[2024-08-31] MEDS ORDERED: NALOXONE HCL 0.4 MG/ML VIAL IV PRN (20:45)
--- NOTE | 2024-08-31 21:03 | DVHOP ---
DATE OF SURGERY: 08/31/2024 PREOPERATIVE DIAGNOSES: * Term intrauterine . * Gestational diabetes A1. * Failed induction of labor. * Category 2 heart rate pattern. FINAL DIAGNOSES: * Term intrauterine . * Gestational diabetes A1. * Failed induction of labor. * Category 2 heart rate pattern. * Right ovarian cyst. PROCEDURE PERFORMED: * Primary low transverse section via Pfannenstiel skin incision. * Right ovarian cystectomy. SURGEON: Sahil Braun DO PHARMACY INFORMATICS SPECIALIST: ophthalmic technician apprentice. TYPE OF ANESTHESIA: Spinal. ANESTHESIOLOGIST: Patricia Jordan. DESCRIPTION OF FINDINGS: Delivery of a liveborn female , cephalic presentation, occiput posterior, 2+ meconium fluid. No nuchal cord. Body cord around the baby's waist and leg. Normal placenta. Thin umbilical cord, 3 vessel umbilical cord. Normal uterus. Normal bilateral fallopian tubes. Normal left ovary. Right ovary contained a 3 cm chocolate cyst that was removed. TECHNICAL PROCEDURE: After informed consent was obtained, the patient was taken to the operating room where her spinal anesthesia was found to be adequate. She was placed in the supine position with a slight leftward tilt. She was sterilely prepped and draped in the usual sterile fashion. A Pfannenstiel skin incision was made with the scalpel. The incision was carried down sharply to the underlying layer of fascia and peritoneum. Entry into the peritoneal cavity was performed bluntly. The peritoneal incision was extended superiorly and inferiorly with good visualization of the bladder. Brennan O retractor was placed into the incision. Next, the lower uterine segment was identified and incised in a low transverse fashion with the scalpel. The incision was extended laterally using digital technique. The amniotic fluid membranes were ruptured. The fluid was found to be meconium stained. The baby was found to be in the occiput posterior position. The baby was then delivered. After delivery of the infant, the nose and mouth were suctioned. The cord was clamped and cut after 30 seconds and the baby handed off to awaiting pediatric team. Cord blood and cord gases were obtained. The placenta was spontaneously delivered. The uterus was exteriorized and cleared of all clots and debris using moist laparotomy sponges. The uterine incision was then repaired with #1 Stratafix suture in continuous running fashion. The uterus was repaired in 2 layers, obtaining excellent tissue approximation and hemostasis. Next, the right fallopian tube and ovary were inspected. The right ovary contained a 3 cm chocolate type cyst. The ovary was incised with the cautery and a cystectomy was performed sharply. The cyst contents were submitted to pathology. There was minimal bleeding from the ovary. The ovary was oversewn using 2-0 chromic with good hemostasis noted. The uterus was returned to the abdomen. The pericolic gutters and cul-de-sac were cleared of all clots and debris. All instrumentation was removed from the patient's abdomen. Hemostasis was once again confirmed. At this point, I proceeded to close the rectus fascia using #1 Stratafix in continuous running fashion with good tissue approximation. The subcutaneous tissue was closed with 2-0 plain gut and the skin closed in subcuticular fashion using 3-0 Stratafix suture in subcuticular fashion. A thin layer of Dermabond was placed over the incision after the Dermabond was dry. The silk dressing was placed over the incision. The patient tolerated the procedure well. Sponge, lap and needle counts were correct x4. INTRAOPERATIVE COMPLICATIONS: None. ESTIMATED BLOOD LOSS: 800 mL. POSTOPERATIVE CONDITION: Stable. SPECIMENS: Cord blood, cord gases, placenta and right ovarian cyst contents. MEDICATIONS: The patient received 2 grams of Ancef prior to skin incision. Sahil Braun DO TID: [id number] RECEIPT: [id number]
[2024-08-31 21:15] VITALS: BP 111/69; PULSE 86; RESP 16; TEMP 98.1; O2SAT 100
[2024-08-31 22:16] VITALS: BP 109/66; PULSE 85; RESP 16; TEMP 98.2; O2SAT 99
[2024-08-31 23:12] LABS: Hematocrit 29.9 % (36.0-46.0)
[2024-08-31] MEDS ORDERED: ACETAMINOPHEN IV 1000 MG/100ML (10MG/ML) IV PRN (23:45)
[2024-09-01] VITALS (13 sets, daily range): BP systolic 97–143; BP diastolic 55–79; PULSE 75–129; RESP 16–20; TEMP 97.8–99.2; O2SAT 93–100
[2024-09-01] MEDS: ACETAMINOPHEN IV 1000 MG/100ML (10MG/ML) IV PRN ×2 (00:13→09:32)
[2024-09-01] MEDS: ceFAZolin 2 GM/D5W50ml 50 ML IV ONE (00:34)
[2024-09-01] MEDS: ONDANSETRON HCL 4 MG/2 ML VIAL IV ONE (00:34)
[2024-09-01] MEDS: OXYTOCIN 10UNIT/ML 1ML VIAL ONE (00:34)
[2024-09-01] MEDS: LACTATED RINGER'S 1,000 ML IV ONE (00:34)
[2024-09-01] MEDS: LACT. RINGERS/OXYTOCIN 20UNITS 1,000 ML IV ONE (01:13)
[2024-09-01] MEDS: ceFAZolin 1GM/50ML 50 ML IV SCH (03:16)
[2024-09-01] MEDS: LIDOCAINE 2%HCL (LOCAL ANESTH.) INJ 20ML MDV IJ PRN (05:16)
--- NOTE | 2024-09-01 06:29 | DVHPN2 ---
Progress Note Date Seen: Sep 01, 2024 Subjective POD#1 s/p 1' C/Section and Rt ovarian cystectomy S: Pain controlled. Lochia minimal. + Flatus vital signs Vital Sign Date Time Temp Pulse Resp B/P (MAP) Pulse Ox O2 Delivery O2 Flow Rate FiO2 09/01/24 05:30 76 16 113/67 (82) 93 09/01/24 03:31 98.8 98.8 09/01/24 00:30 Room Air Total Intake and Output 08/31/24 08/31/24 09/01/24 15:00 23:00 07:00 Intake Total 950 ml Output Total 20 ml 407 ml Balance -20 ml 543 ml medications Current Medications Medications Dose Ordered Sig/Allison Route Start Time Stop Time Status Last Admin Dose Admin Lactated Ringer's 1,000 ml @ 125 mls/hr Q8H IV 08/30/24 20:15 09/01/24 05:44 125 MLS/HR Nalbuphine HCl 10 mg Q4HP PRN IV 08/30/24 20:15 Diagnostic Test (Pha) 1 strip Q4HR 08/30/24 23:00 Rigoberto Mathew 1 pad PRN PRN TOP 08/30/24 20:15 08/30/24 23:38 1 PAD Sodium Lauryl Sulfate 240 ml PRN PRN TOP 08/30/24 20:15 08/30/24 23:38 240 ML Benzocaine 1 applic PRN PRN TOP 08/30/24 20:15 08/30/24 23:38 1 APPLIC Lidocaine HCl 20 ml ONCE PRN IJ 08/30/24 20:15 Misoprostol 50 mcg Q4HPRN PRN PO 08/30/24 22:00 08/31/24 08:35 50 MCG Diphenhydramine HCl 25 mg Q4HP PRN IV 08/31/24 20:45 Ondansetron HCl 4 mg Q4HP PRN IV 08/31/24 20:45 Ketorolac Tromethamine 30 mg Q6HP PRN IV 08/31/24 20:45 09/05/24 20:44 Cefazolin Sodium 50 ml @ 100 mls/hr Q8H IV 09/01/24 03:30 09/01/24 19:59 09/01/24 03:16 100 MLS/HR Acetaminophen 1,000 mg [id number] PRN IV 09/01/24 08:13 09/01/24 08:14 laboratory and microbiology Laboratory Tests 08/31/24 22:46 08/30/24 20:34 Test 08/30/24 20:34 Range/Units Serum Glucose 112 H 74-106 mg/dL Objective O: AFVSS Chest: heart and lung sounds normal. Abd soft, non-tender, fundus firm, BS, no rebound or guarding, Incision - dressing and incision clean, dry, intact Ext Neg Homans, Non-tender, edema Lochia - minimal Labs Reviewed Assessment/Plan 34y s/p 1' C/S , GDMA1, s/p Rt Ov. cystectomy POD#1 Advance orders Pain control Regular diet Plan discussed with: Patient, Other (RN) DINA ROLDAN DO Sep 01, 2024 06:29
[2024-09-01] MEDS ORDERED: IBUP-1455 PO (06:53)
[2024-09-01] MEDS ORDERED: HYDR-4902 PO (06:53)
[2024-09-01 08:06] LABS: Basophils # (auto) 0 10 ^3/uL (0-0.2); Eosinophils # (auto) 0 10 ^3/uL (0-0.8); Hematocrit 25.8 % (36.0-46.0); Hemoglobin 8.6 g/dL (12.2-16.2); Lymphocytes % (auto) 7.7 % (10.0-50.0); Mean Corpuscular Hemoglobin 29.4 pg (28.0-32.0); Mean Corpuscular Hgb Conc. 33.2 g/dL (32.0-36.0); Mean Corpuscular Volume 88.6 fL (80.0-100.0); Monocytes # (auto) 0.7 10 ^3/uL (0-1.3); Monocytes % (auto) 5.8 % (0.0-12.0); Neutrophils # (auto) 10.8 10 ^3/uL (1.6-8.6); Neutrophils % (auto) 86.5 % (37.0-80.0); Platelet Count (auto) 149 10^3/uL (140-450); Red Blood Cells 2.91 10^6/uL (4.0-5.20); Red Cell Distribution Width 12.9 % (11.8-14.3); White Blood Cell 12.5 10^3/uL (4.4-10.8)
[2024-09-01] MEDS ORDERED: ACETAMINOPHEN IV 1000 MG/100ML (10MG/ML) IV PRN (08:13)
[2024-09-01] MEDS ORDERED: PREN-96 PO (10:10)
[2024-09-01] MEDS ORDERED: FERRCAP9 PO (10:10)
[2024-09-01 13:08] LABS: RPR Non Reactive (Non Reactive)
[2024-09-01] MEDS: KETOROLAC TROMETH 30 MG/ML 1ML VIAL IV PRN (15:28)
[2024-09-01] MEDS ORDERED: HYDROcodone-ACET 5/325MG TAB PO PRN ×2 (16:30)
[2024-09-01] MEDS: SIMETHICONE 80 MG CHEWABLE TABLET PO SCH (17:30)
[2024-09-01] MEDS: IBUPROFEN 800 MG TAB PO PRN (22:05)
[2024-09-01] MEDS: DOCUSATE SOD 100 MG CAP PO SCH (22:05)
--- NOTE | 2024-09-02 01:42 | DVHPN2 ---
Progress Note Date Seen: Sep 02, 2024 Subjective S: bleeding is less, eating food without issues, denies lightheaded/dizziness, pain well controlled with oral medications, no concerns with urinating, passing flatus, had BM already, ambulating well, pumping vital signs Vital Sign Date Time Temp Pulse Resp B/P (MAP) Pulse Ox O2 Delivery O2 Flow Rate FiO2 09/01/24 23:45 98.4 09/01/24 22:45 80 16 108/59 (75) 100 09/01/24 19:30 Room Air Total Intake and Output 09/01/24 09/01/24 09/02/24 15:00 23:00 07:00 Output Total 600 ml 1100 ml Balance -600 ml -1100 ml medications Current Medications Medications Dose Ordered Sig/Allison Route Start Time Stop Time Status Last Admin Dose Admin Nalbuphine HCl 10 mg Q4HP PRN IV 08/30/24 20:15 Rigoberto Mathew 1 pad PRN PRN TOP 08/30/24 20:15 08/30/24 23:38 1 PAD Sodium Lauryl Sulfate 240 ml PRN PRN TOP 08/30/24 20:15 08/30/24 23:38 240 ML Benzocaine 1 applic PRN PRN TOP 08/30/24 20:15 08/30/24 23:38 1 APPLIC Lidocaine HCl 20 ml ONCE PRN IJ 08/30/24 20:15 Diphenhydramine HCl 25 mg Q4HP PRN IV 08/31/24 20:45 Ondansetron HCl 4 mg Q4HP PRN IV 08/31/24 20:45 Docusate Calcium 240 mg DAILY PO 09/02/24 10:00 Docusate Sodium 100 mg Q12HR PO 09/01/24 22:00 09/01/24 22:05 100 MG Dimethicone 80 mg QID PO 09/01/24 18:00 09/01/24 22:05 80 MG Ibuprofen 800 mg Q8HP PRN PO 09/01/24 16:30 09/01/24 22:05 800 MG Acetaminophen/ Hydrocodone Bitart 1 tab Q4HPRN PRN PO 09/01/24 16:30 Acetaminophen/ Hydrocodone Bitart 2 tab Q4HPRN PRN PO 09/01/24 16:30 laboratory and microbiology Laboratory Tests 09/01/24 07:37 08/30/24 20:34 Test 08/30/24 20:34 Range/Units Serum Glucose 112 H 74-106 mg/dL Objective O: VSS Chest: heart sounds normal and lung sounds clear bilaterally Abd: soft, non-tender, fundus at U/firm/midline, active bowel sounds, no rebound or guarding Incision: sylke dressing open to air, clean/dry/intact Ext: Non-tender, No edema, 2+ BLE DTRs Lochia: minimal See lab results Problems(with codes): (1) S/P primary low transverse (2) Precipitous drop in hematocrit Assessment/Plan A: 34yo now PPD#2 s/p primary Anemia Rh+ Rubella Immune Pumping breast milk, baby in NICU at [facility] [place] Pain control with PO medications Bowel regimen P: D/C home today Rx sent to pharmacy precautions and preeclampsia warning signs reviewed F/U with [facility] office in 1 week Plan discussed with: Patient, Other (RN) ANDRÉS HILL CNM Sep 02, 2024 01:42
[2024-09-02 03:00] VITALS: BP 92/58; PULSE 77; RESP 18; TEMP 98.6; O2SAT 94
[2024-09-02 06:41] VITALS: BP 96/64; PULSE 78; RESP 18; TEMP 97.9; O2SAT 98
[2024-09-02 09:08] LABS: Basophils # (auto) 0 10 ^3/uL (0-0.2); Basophils % (auto) 0.3 % (0.0-2.0); Eosinophils # (auto) 0 10 ^3/uL (0-0.8); Eosinophils % (auto) 0.2 % (0.0-7.0); Hematocrit 25.6 % (36.0-46.0); Hemoglobin 8.7 g/dL (12.2-16.2); Lymphocytes # (auto) 1.2 10 ^3/uL (0.4-5.4); Lymphocytes % (auto) 13.6 % (10.0-50.0); Mean Corpuscular Hemoglobin 30.6 pg (28.0-32.0); Mean Corpuscular Hgb Conc. 34.1 g/dL (32.0-36.0); Mean Corpuscular Volume 89.7 fL (80.0-100.0); Monocytes # (auto) 0.3 10 ^3/uL (0-1.3); Monocytes % (auto) 3.7 % (0.0-12.0); Neutrophils # (auto) 7.5 10 ^3/uL (1.6-8.6); Neutrophils % (auto) 82.2 % (37.0-80.0); Platelet Count (auto) 155 10^3/uL (140-450); Red Blood Cells 2.86 10^6/uL (4.0-5.20); Red Cell Distribution Width 13.4 % (11.8-14.3); White Blood Cell 9.1 10^3/uL (4.4-10.8)
[2024-09-02] MEDS: DOCUSATE CALCIUM 240 MG CAP PO SCH (09:53)
[2024-09-02 10:43] VITALS: BP 107/64; PULSE 76; RESP 17; TEMP 98.8; O2SAT 98
--- NOTE | 2024-09-02 11:29 | DVHDS2 ---
Obstetrics Discharge Summary Obstetrics Discharge Summary Date of Admission: Aug 30, 2024 Date of Discharge: Sep 02, 2024 Reason For Admission: Induction of Labor (GDM, A1) Procedures: NST, Ultrasound, Mgmt of Obstetrics Compli (failed IOL for GDM, A1) Intrapartum Procedures: (primary LTCS), Others (right ovarian cystectomy) Procedures: Antibiotics, Hct/date: (09/02/24), Hgb/date: (09/02/24) Operative Complicat: None Discharge Diagnosis: Term -Delivered, Failed Induction Discharge Information: Activity (as tolerated, no heavy lifting and nothing in the vagina for 6 weeks), Diet (Routine), Medications (Rx sent), Instructions (Routine), Discharge to (Home), Accompanied by (partner), Discarge date (09/02/24) ANDRÉS HILL CNM Sep 02, 2024 11:29
== END 2024-09-02 12:48 | disposition home or self-care (01) | DRG 788 ==
LOC: LDRP 19:52
PROVIDERS: ADMIT Obstetrics & Gynecology; ATTEND Obstetrics & Gynecology
PROC: 10D00Z1 Extraction of Products of Conception, Low, Open Approach (ICD-10-PCS; 2024-08-31)
PROC: 0UB00ZZ Excision of Right Ovary, Open Approach (ICD-10-PCS; principal; 2024-08-31 19:21)
DX: O34.83 Maternal care for other abnormalities of pelvic organs, third trimester (principal); Z37.0 Single live birth; F41.9 Anxiety disorder, unspecified; N83.201 Unspecified ovarian cyst, right side; O24.420 Gestational diabetes mellitus in childbirth, diet controlled; O61.9 Failed induction of labor, unspecified; O99.344 Other mental disorders complicating childbirth; Z3A.39 39 weeks gestation of pregnancy; O90.81 Anemia of the puerperium
CPT/HCPCS: 36415; 59025; 76815; 80053; 80307; 81001; 81002; 82948; 82962; 85014; 85018; 85025; 85610; 85730; 86592; 86780; 86850; 86900; 86901; 94760; 94762; 96360; 96361; 96365; 96366; 96374; G0378; J0131; J1885; J2405; J2590; J7060

== ENCOUNTER 2025-06-14 06:09 | Outpatient (CLI) | payer BC, OTHER ==
[~2025-06-14 06:09] MED LIST changes: +FERRCAP9 PO; +IBUP-1455 PO; -METO-281 PO; -NITR-87 PO
[2025-06-14 06:55] LABS: Hematocrit 36.7 % (36.0-46.0); Hemoglobin 12.5 g/dL (12.2-16.2); Mean Corpuscular Hemoglobin 28.2 pg (28.0-32.0); Mean Corpuscular Volume 82.5 fL (80.0-100.0); Nucleated Red Blood Cells % 0.1 %
[2025-06-14 07:06] LABS: Alanine Aminotransferase 15 U/L (7-40); Albumin 4.4 g/dL (3.2-4.8); Alkaline Phosphatase 66 U/L (46-116); Anion Gap 9 (5-15); BUN/Creatinine Ratio 16.9 (10.0-20.0); Bilirubin, Total 0.5 mg/dL (0.2-1.0); Blood Urea Nitrogen 10 mg/dL (9-23); Calcium 8.9 mg/dL (8.7-10.4); Carbon Dioxide 25 mmol/L (20-31); Glucose 99 mg/dL (74-106); HDL Cholesterol 57 mg/dL (40-59); Potassium 4.0 mmol/L (3.5-5.1); Sodium 141 mmol/L (136-145); Total Protein 7.2 g/dL (5.7-8.2); Triglycerides 134 mg/dL (< 150)
[2025-06-14 07:10] LABS: Chloride 107 mmol/L (98-107); Cholesterol 232 mg/dL (< 200)
[2025-06-14 07:30] LABS: Urine Protein, UAD Normal (Negative)
== END 2025-06-14 17:00 | disposition home or self-care (01) ==
LOC: LAB 06:09
PROVIDERS: ATTEND Student in an Organized Health Care Education/Training Program
DX: E55.9 Vitamin D deficiency, unspecified (principal); R03.0 Elevated blood-pressure reading, without diagnosis of hypertension; R73.9 Hyperglycemia, unspecified
CPT/HCPCS: 36415; 80053; 80061; 81003; 82306; 83036; 84443; 85025; 85652